=== PATIENT | female | born 1965 | race Caucasian/White ===

== ENCOUNTER 2017-12-26 10:32 | Outpatient (CLI) | payer OTHER ==
--- NOTE | 2017-12-26 14:31 | MMO ---
BILATERAL SCREENING MAMMOGRAM: HISTORY: Screening. COMPARISON: Mammogram from 2014. FINDINGS: Bilateral CC and MLO mammograms were performed with computer-aided detection. Scattered fibroglandul ar densities. No suspicious mass, architectural distortion, or microcalcifications. Interpretation of this mammogram was performed with the assistance of computer-aided detection. IMPRESSION: BI-RADS category 2, benign findings. Annual screening mammography is recommended. BIRADS 2: Benign Finding(s) Routine annual screening mammography (for women over age 40) POS: SRIDHAR
== END 2017-12-26 10:33 | disposition home or self-care (01) ==
LOC: SCSMAMMO 10:32
PROVIDERS: ATTEND Family Medicine
DX: Z12.31 Encounter for screening mammogram for malignant neoplasm of breast (principal)
CPT/HCPCS: 77067

== ENCOUNTER 2018-03-15 14:28 | Emergency (ER) | payer OTHER ==
[2018-03-15] MEDS ORDERED: Ondansetron HCl/PF 4 MG/2 ML Vial ONE (14:51)
[2018-03-15 15:00] LABS: #Basophils 0.1 thou/uL (0.0-0.2); #Lymphocytes 1.1 thou/uL (1.20-3.40); #Monocytes 0.9 thou/uL (0.11-0.59); #Neutrophils 7.7 thou/uL (1.40-6.50); %Basophils 0.6 % (0.0-1.0); %Eosinophils 0.2 % (0.0-10.0); %Monocytes 8.9 % (0.0-10.0); %Neutrophils 79.3 % (42.0-75.0); Hemoglobin 14.1 g/dL (12.0-16.0); Mean Corpuscular HGB CONC 32.5 g/dL (32.0-36.0); Mean Corpuscular Hemoglobin 33.4 pg (27.0-31.0); Mean Platelet Volume 5.9 fL (7.4-10.4); Platelet Count 255 thou/uL (130-400); RBC Distribution Width 12.3 % (11.5-14.5); Red Blood Cell (RBC) Count 4.21 mill/uL (4.20-5.40); White Blood Cell (WBC) Count 9.8 thou/uL (4.8-10.8)
[2018-03-15 15:22] LABS: ALT (SGPT) 52 U/L (8-55); AST (SGOT) 61 U/L (5-34); Albumin 4.2 g/dL (3.5-5.0); Alkaline Phosphatase 82 U/L (40-150); Anion Gap 24 mmol/L (10-20); BUN (Urea Nitrogen) 4 mg/dL (7.0-18.7); Bilirubin, Total 0.6 mg/dL (0.2-1.2); CK (CPK) 44 U/L (29-168); Calc. Creatinine Clearance 0 mL/min (70-130); Calcium 8.7 mg/dL (7.8-10.44); Carbon Dioxide 20 mmol/L (22-29); Chloride 99 mmol/L (98-107); Estimated GFR-MDRD Greater than 90; Globulin 3.6 g/dL (2.4-3.5); Glucose 128 mg/dL (70-105); Lipase 24 U/L (8-78); Protein, Total 7.8 g/dL (6.0-8.3); Sodium 140 mmol/L (136-145)
[2018-03-15 15:24] LABS: CKMB 0.9 ng/mL (0-6.6); Troponin I 0.018 ng/mL (< 0.028)
--- NOTE | 2018-03-15 15:29 | RAD ---
FRONTAL VIEW CHEST: Date: 03/15/18 COMPARISON: 06/26/16. INDICATION: Tachycardia. FINDINGS: There is no consolidation, effusion, or pneumothorax. Cardiac silhouette is normal in size. IMPRESSION: No focal consolidation. POS: NATALYH
[2018-03-15] MEDS ORDERED: Ketorolac Tromethamine 30 MG/ML VIAL ONE (15:52)
[2018-03-15] MEDS ORDERED: Lorazepam 2 MG/ML VIAL ONE (15:52)
[2018-03-15 16:01] LABS: Bilirubin Negative (Negative); Blood, Urine Negative (Negative); Clarity CLEAR (Clear); Glucose, Urine (Dipstick) Negative (Negative); Leukocyte Small (Negative); Nitrite Negative (Negative); Protein, Urine (Dipstick) Negative (Neg-Trace); Specific Gravity, Urine 1.005 (1.002-1.036); Urobilinogen 0.2 mg/dL (0.2-1.0); pH, Urine 7.5 (5.0-9.0)
[2018-03-15 16:03] LABS: Bacteria/HPF None Seen HPF (None Seen); Hyaline Casts/LPF 0-3 HYALINE CAST LPF (0-3 Hyaline); Pathc Cast-AUWi Flag 0.58 (0-2.49); RBC/HPF 0-3 HPF (0-3); Squamous Epithelial None Seen HPF (0-3); WBC/HPF 0-3 HPF (0-3)
[2018-03-15 17:38] LABS: Actual Bicarbonate (HCO3v) 21 mEq/L (22-28); Analyzer IN Cardio ER; Base Excess -2.5 mEq/L (-2.0 to +3.0); Calcium, Ionized 0.97 mmol/L (1.16-1.32); Chloride (ABG LAB) 104 mmol/L (98-106); Hemoglobin (Hb) 15.1 g/dL (11.7-16.0); Potassium - ABG Lab 3.48 mmol/L (3.70-5.30); Sodium 141.4 mmol/L (133-146); pH (venous) 7.43 (7.32-7.43)
[2018-03-15] MEDS ORDERED: Potassium Chloride 20 MEQ TAB ONE (17:42)
[2018-03-15] MEDS ORDERED: Calcium Gluc 4.6 MEQ/10 ML (100 MG/ML) ONE (17:55)
[2018-03-15] MEDS ORDERED: Calcium Gluconate 4.6 MEQ in Sodium Chloride 0.9% 100 ML IVPB SCH (18:15)
== END 2018-03-15 19:52 | disposition home or self-care (01) ==
LOC: ERS 14:28
DX: F41.9 Anxiety disorder, unspecified (principal); M62.838 Other muscle spasm
CPT/HCPCS: 36415; 71045; 80053; 81003; 81015; 82550; 82553; 82805; 83690; 83880; 84443; 84484; 85025; 93005; J1885; J2060; J2405; J7050

== ENCOUNTER 2018-03-16 10:42 | Inpatient (IN) | payer OTHER ==
[2018-03-16 11:26] LABS: Base Excess-Venous 0.3 mmol/L (0 (+/- 2.5)); Bicarbonate (HCO3v) 19.8 mmol/L (1.0-85.0); Calcium, Ionized 1.05 mmol/L (1.12-1.32); Hemoglobin - Calc 15.5 g/dL (12.0-18.0); O2 Tension (PvO2) 46.7 mmHg (35.0-45.0); Potassium 2.5 mmol/L (3.4-4.7); T. Carbon Dioxide 20.4 mmol/L (1.0-85.0); pH (Venous) 7.582 (7.35-7.45); vO2 Saturation-calc 89.7 % (94-98)
[2018-03-16 11:47] LABS: #Lymphocytes 0.9 thou/uL (1.20-3.40); #Monocytes 0.8 thou/uL (0.11-0.59); #Neutrophils 4.7 thou/uL (1.40-6.50); %Basophils 0.3 % (0.0-1.0); %Eosinophils 0.4 % (0.0-10.0); %Lymphocytes 13.9 % (21.0-51.0); %Monocytes 11.9 % (0.0-10.0); %Neutrophils 73.5 % (42.0-75.0); Hemoglobin 14.2 g/dL (12.0-16.0); Mean Corpuscular HGB CONC 33.2 g/dL (32.0-36.0); Mean Corpuscular Hemoglobin 33.8 pg (27.0-31.0); Mean Platelet Volume 6.3 fL (7.4-10.4); Platelet Count 245 thou/uL (130-400); Red Blood Cell (RBC) Count 4.21 mill/uL (4.20-5.40); White Blood Cell (WBC) Count 6.5 thou/uL (4.8-10.8)
[2018-03-16 12:08] LABS: ALT (SGPT) 46 U/L (8-55); AST (SGOT) 57 U/L (5-34); Albumin 4.3 g/dL (3.5-5.0); Alkaline Phosphatase 81 U/L (40-150); Anion Gap 24 mmol/L (10-20); BUN (Urea Nitrogen) 7 mg/dL (7.0-18.7); Bilirubin, Total 1.1 mg/dL (0.2-1.2); CK (CPK) 50 U/L (29-168); Calc. Creatinine Clearance 0 mL/min (70-130); Calcium 9.9 mg/dL (7.8-10.44); Carbon Dioxide 18 mmol/L (22-29); Chloride 98 mmol/L (98-107); Estimated GFR-MDRD Greater than 90; Globulin 3.5 g/dL (2.4-3.5); Glucose 81 mg/dL (70-105); Potassium 2.6 mmol/L (3.5-5.1); Protein, Total 7.8 g/dL (6.0-8.3); Sodium 137 mmol/L (136-145)
[2018-03-16 12:19] LABS: CKMB 1.4 ng/mL (0-6.6); Troponin I 0.013 ng/mL (< 0.028)
[2018-03-16] MEDS ORDERED: Calcium Gluc 4.6 MEQ/10 ML (100 MG/ML) ONE ×2 (12:40→12:45)
[2018-03-16] MEDS ORDERED: Potassium Chloride 20 MEQ TAB ONE (12:40)
[2018-03-16] MEDS ORDERED: Magnesium 2 GM/50 ML 2 GM in Premix Bag 1 BAG IVPB SCH (13:00)
[2018-03-16] MEDS ORDERED: Lorazepam 2 MG/ML VIAL ONE (14:21)
[2018-03-16] MEDS ORDERED: Ondansetron ODT 4 MG TAB PO PRN (15:42)
[2018-03-16] MEDS ORDERED: Pepto Bismol Chew TAB PO PRN (15:42)
[2018-03-16] MEDS ORDERED: traMADol HCl 50 MG TAB PO PRN (15:42)
[2018-03-16] MEDS ORDERED: Acetaminophen 500 MG TAB PO PRN (15:42)
[2018-03-16] MEDS ORDERED: Calcium Carbonate 500 MG ChewTAB PO PRN (15:42)
[2018-03-16] MEDS ORDERED: Mag-Al 1200 mg/1200 mg/30 ML UDCUP PO PRN (15:42)
[2018-03-16] MEDS ORDERED: traZODone HCl 50 MG TAB PO PRN (15:42)
[2018-03-16] MEDS ORDERED: Ondansetron HCl/PF 4 MG/2 ML Vial IVP PRN (15:42)
[2018-03-16 15:49] VITALS: BMI 21.5
[2018-03-16] MEDS: Potassium Chloride 20 MEQ in Premix Bag 1 BAG IVPB SCH ×2 (16:00→17:34)
[2018-03-16 17:09] LABS: Troponin I 0.013 ng/mL (< 0.028)
[2018-03-16 18:55] LABS: ALT (SGPT) 43 U/L (8-55); AST (SGOT) 55 U/L (5-34); Albumin 4.1 g/dL (3.5-5.0); Alkaline Phosphatase 79 U/L (40-150); Anion Gap 14 mmol/L (10-20); BUN (Urea Nitrogen) 6 mg/dL (7.0-18.7); Bilirubin, Total 0.8 mg/dL (0.2-1.2); Calc. Creatinine Clearance 79 mL/min (70-130); Calcium 9.5 mg/dL (7.8-10.44); Carbon Dioxide 23 mmol/L (22-29); Chloride 100 mmol/L (98-107); Estimated GFR-MDRD Greater than 90; Globulin 3.5 g/dL (2.4-3.5); Glucose 97 mg/dL (70-105); Magnesium 2.2 mg/dL (1.6-2.6); Potassium 3.8 mmol/L (3.5-5.1); Protein, Total 7.6 g/dL (6.0-8.3); Sodium 133 mmol/L (136-145)
[2018-03-16 19:14] LABS: Free T4 (Free Thyroxine) 1.06 ng/dL (0.70-1.48)
[2018-03-16 19:27] LABS: Folate (Folic Acid) 12.5 ng/mL (7.0-31.4)
[2018-03-16] MEDS ORDERED: Lorazepam 2 MG/ML VIAL SLOW IVP PRN (19:35)
[2018-03-16] MEDS ORDERED: Morphine 10 MG/ML VIAL SLOW IVP PRN (19:36)
[2018-03-16] MEDS: Topiramate 100 MG TAB PO SCH (21:09)
[2018-03-16] MEDS: D5 1/2 NS w/40 mEq KCL 1,000 ML IV SCH (22:33)
--- NOTE | 2018-03-17 00:03 | HP ---
DATE OF SERVICE: 03/16/2018 PRIMARY CARE PHYSICIAN: Dr. Lev Davila. CHIEF COMPLAINT: Intractable nausea and vomiting. HISTORY OF PRESENT ILLNESS: The patient was seen in outpatient clinic with Dr. Davila on the of this month and noted to have chronic diarrhea following colonoscopy earlier this year. Unable to review records on an outpatient. Colonoscopy was performed on 12/31/2017, screening colonoscopy, diverticulosis and sigmoid colon were found, internal hemorrhoid was present, otherwise normal. Repeat colonoscopy in [address] Luis Alberto Hardy. When speaking with the patient and patient's , they state that this has been going on for many more months that she has had a near lifelong history of queasy stomach; but over the last 6 months, she has thrown up in the morning, every morning, without fail, small amount, able to keep down so much amount of food and liquid throughout the day, has been having diarrhea over that 6-month period as well. She has only had uptake following bowel prep in December and has had intractable nausea and vomiting over the last 48-72 hours for which they presented to [facility] yesterday for, found to have potassium significantly low, was properly replaced at 3.4 prior to discharge home with intended close clinic followup. Given the fact Dr. Lev Davila has already done stool studies for chronic diarrhea with toxin assay negative, culture normal and pending ova and parasite. Apparently, the patient's spouse live on well [place], looking a possibility for parasitic infection given indolent history, but after speaking with the patient and patient's has much more indolent case than that and they state they normally do not use well water for drinking. The patient states she has paresthesias of upper and lower extremities bilaterally. She has had a muscle cramping of upper and lower extremities over the last 48 hours with this decrease in potassium. The patient is overtly anxious; however, denies anxiety, has been treated in the past with multiple anxiety medications including citalopram, Cymbalta, amitriptyline, multiple benzodiazepines. The patient currently not compliant with citalopram. She does not feel if that is much for her, only takes it when she feels she is getting worse. REVIEW OF SYSTEMS: No fevers, no chills. Positive fatigue. No runny nose, no congestion, no cough, no shortness of breath. No tobacco abuse. No chest pain or palpitation. Positive nausea, positive vomiting. Positive abdominal pain. Positive diarrhea. No blood in stool or emesis. Positive muscle cramp. Positive numbness and tingling to upper and lower extremities. No syncopal episode, no headache. Positive anxiety, but patient formally denies, denies depression. Denies illicit drug use. Reports positive alcohol use. Review of past medical, social, surgical history includes allergies to SHELLFISH. 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 HOME MEDICATIONS: Include citalopram 20 mg, Flagyl 500 mg, Imitrex 25 mg for migraine history, ipratropium bromide nasal spray p.r.n., Zofran 4 mg tablet t.i.d. p.r.n., Zanaflex, tizanidine 4 mg b.i.d. p.r.n. Cystoscope in December of this year, diverticulosis and internal hemorrhoid as above. The patient with a prior right knee cartilage arthroscopy, hysterectomy in 2011. The patient is nonsmoker. Drinks alcohol including wine. Lives with spouse. Review of vital signs showed temperature 98.8, pulse of 95, respiratory rate of 14, oxygen saturation 100% on room air, blood pressure 146/80. LABORATORY AND DIAGNOSTIC WORK: Reviewed. White blood cell count 6.5, hemoglobin 14.2, MCV 102, platelet count of 245,000, neutrophils of 73.5. Sodium of 133, potassium improved from 2.5-3.8, chloride of 100, CO2 of 23, creatinine of 0.67, glucose of 97, calcium of 9.5 following of replacement. Ionized calcium was 1.05, slightly low. Magnesium of 2.2, status post magnesium sulfate infusion, AST of 55, ALT of 43. Troponins x2 0.01, CK of 6, albumin of 4.1. Folic acid of 12.5, B12 of 241. Free T3 of 3.38, free T4 of 1.06. TSH performed yesterday's admission to the emergency room, elevated to 5.04. Lipase on yesterday's hospital visit of 24. Urinalysis from yesterday, blood negative, protein. Specific gravity 1.005. PHYSICAL EXAMINATION: GENERAL: The patient is alert and oriented, is agitated. HEENT: Normocephalic, atraumatic. Extraocular movements are intact. Pupils are dilated grossly following benzodiazepine and narcotic administration in the emergency room. Oral mucosa is moist. Patient is concerned about possible canker sore forming and bottom right buccal mucosa. NECK: Supple. HEART: Regular rate and rhythm at time of exam. No murmurs auscultated. LUNGS: Clear to auscultation bilaterally. No rubs or wheezes. ABDOMEN: Bowel sounds slightly hyperactive, generalized tenderness without rebound or guarding, somewhat bloated. Negative bed shakes and leg lifts. No CVA tenderness, no suprapubic tenderness. EXTREMITIES: Lower extremities without cyanosis or edema. The patient is with ecchymoses in bilateral upper and lower extremities. Patient points to multiple areas that are not from phlebotomy on the IV sites over the last [address] Davila as work this up with INR Von Will[place]rans factor negative and normal on an outpatient basis in the last month. NEUROLOGIC: The patient is alert and oriented x3, no focal deficits. Speech is normal. The patient is agitated and anxious; however, denies anxiety. Reports that she has muscle cramping with palpation to all muscle groups of upper and lower extremities as well as numbness and tingling to upper and lower extremities; however, sensation is grossly intact to gross and fine discrimination only. ASSESSMENT AND PLAN: Acute on chronic nausea, vomiting, and diarrhea. Currently, intractable N/V/D, elevated TSH, anxiety, paresthesias. Given the patient's indolent history keeps growing every time I asked when her nausea, vomiting, diarrhea started. We will see gastroenterology recommendations given relatively normal scope other than diverticulosis and hemorrhoid this year. No signs or symptoms of inflammatory bowel disease or celiac sprue. The patient's pattern fits much more of cyclic indices with combined diarrhea. Likely exacerbated by her poorly controlled anxiety on outpatient basis, ova and parasites are still pending on stool studies from outpatient on 03/07, we would like to follow up on those, however. Given paresthesias and muscle cramps that the patient is having that seemed to be beyond what she should be having for normalized potassium. We will check major viral panel and autoimmune panel. The patient's thyroid may be partially responsible for her acute instability, checking a thyroid peroxidase and thyroglobulin antibodies, but the patient's free T4 and free T3 are currently stable. We will go ahead and initiate Topamax as this is not a medication. The patient appeared to have on outpatient basis at least on the last 4 years. The patient failed treatment on amitriptyline, SSRI such as Celexa, Cymbalta, SNRI, and benzodiazepines in the past. Continuing IV fluids overnight with D5 one half NS with 40 mEq of potassium, p.r.n. Ativan and morphine for patient's pain control. Tramadol and trazodone for back up insomnia and pain control. Given the irritability of nerves may look at Solu-Medrol 125 mg x1 following immune panel drawn tomorrow morning to see if the patient's pain profile improves along with continued stability of electrolytes. We will check CMP in the morning again to trend; however, the patient's most recent potassium is normalized with normal magnesium , given IV fluids overnight do not expect the patient to dip down in the morning. The patient's magnesium level was unknown from first emergency department visit, it was likely a low given the fact that she bounced back so quickly with low potassium, however, should be maintained now that is about 2. MTDD
[2018-03-17 05:45] LABS: ALT (SGPT) 43 U/L (8-55); AST (SGOT) 53 U/L (5-34); Alkaline Phosphatase 74 U/L (40-150); Anion Gap 10 mmol/L (10-20); BUN (Urea Nitrogen) 5 mg/dL (7.0-18.7); Calc. Creatinine Clearance 81 mL/min (70-130); Carbon Dioxide 25 mmol/L (22-29); Chloride 103 mmol/L (98-107); Estimated GFR-MDRD Greater than 90; Globulin 3.5 g/dL (2.4-3.5); Glucose 118 mg/dL (70-105); Potassium 4.2 mmol/L (3.5-5.1); Protein, Total 7.5 g/dL (6.0-8.3); Sodium 134 mmol/L (136-145)
[2018-03-17 05:47] LABS: CRP (Inflammatory) 1.28 mg/dL (= or < 0.5)
[2018-03-17] MEDS: D5 1/2 NS w/40 mEq KCL 1,000 ML IV SCH (06:16)
[2018-03-17 06:55] LABS: HBCM Index 0.07 S/CO (0-0.79); HBSAg Index 0.22 S/CO (0-0.99); Hep A IgM AB Non-Reactive (NonReactive); Hep A IgM S/CO 0.12 S/CO (0-0.79); Hep B Surf Ag Non-Reactive S/CO (NonReactive); Hep C IgG Ab Non-Reactive (NonReactive); Hepatitis B Core IGM Abs Non-Reactive (NonReactive)
[2018-03-17] MEDS ORDERED: Loperamide HCl 2 MG CAP PO PRN (07:52)
--- NOTE | 2018-03-17 08:13 | PRG ---
DATE OF SERVICE: 03/17/2018 The patient is feeling some better. She is tolerating a chicken biscuit this morning. Denies nausea and vomiting, continues to have loose to watery stools, but last bowel movement was 2-3 days ago. S he states that she has not had a good appetite as of lately. Denies fevers or chills, nausea and vom iting. Denies abdominal pain. OBJECTIVE: VITAL SIGNS: Temperature 98.0, pulse of 97-102, respirations 15, blood pressure 140/87, pulse ox is 93-98% on room air. GENERAL: She is awake, alert, in no acute distress. Speech is clear. Mucosa is moist. NECK: Supple. HEART: Regular rate and rhythm. LUNGS: Clear. ABDOMEN: Positive bowel sounds throughout, soft, nontender, nondistended. No hepatosplenomegaly. EXTREMITIES: No edema, no calf tenderness. Full range of motion. LABORATORY DATA: Sodium 134, potassium 4.2, chloride 103, CO2 of 25, BUN and creatinine 5 and 0.66 w ith a GFR over 90. Serum glucose of 118, calcium of 9.0, magnesium of 2.2, AST and ALT are stable, T 3 and T4 were normal. White blood cell count 6.5, hemoglobin and hematocrit 14.2 and 42.8 with macro cytic indices, platelets of 254. Sed rate of 12. ASSESSMENT AND PLAN: This is a 52-year-old female patient with a long history of anxiety disorder wh o has not been compliant with her medications. She has had symptoms of chronic diarrhea. She has a history of irritable bowel, has had acute episode of intractable nausea and vomiting, and diarrhea ov er the past few days and admitted for symptomatic hypokalemia. 1. Hypokalemia, has resolved with replacement. Her magnesium levels has been stable. We will disco ntinue IV fluids and transition her to an oral diet and monitor closely. 2. Chronic diarrhea. Consult GI for further evaluation as she has not followed up as an outpatient. 3. Elevated TSH with normal T3 and T4, possibly euthyroid, sick, will continue to monitor. Await th yroid antibodies. 4. Chronic anxiety. I will continue trazodone at bedtime, limit benzodiazepines. DISPOSITION: Hopefully home later today or in the morning if she is tolerating a diet after GI evalu ation.
[2018-03-17] MEDS: Topiramate 100 MG TAB PO SCH (08:58)
[2018-03-17] MEDS ORDERED: methylPREDNISolone Sod Succ/PF 125 MG/2 ML VIAL IVP SCH (09:00)
[2018-03-17] MEDS ORDERED: methylPREDNISolone Sod Succ/PF 125 MG/2 ML VIAL IVP ONE (09:00)
[2018-03-17] MEDS ORDERED: Citalopram 20 MG TAB PO SCH (09:00)
[2018-03-17] MEDS ORDERED: Cyanocobalamin (Vitamin B-12) 1,000 MCG TAB PO SCH (09:00)
[2018-03-17 11:36] VITALS: BP 128/77; TEMP 98.7
[2018-03-17 14:50] LABS: ANA Symphony (Qualitative) Negative (Negative); ANA Symphony (Quantitative) Less than 0.07 Ratio (<0.7 Negative); dsDNA IgG Antibody Less than 0.5 IU/mL (<10 Negative)
[2018-03-17 15:09] LABS: EliA Thy New Method **** NEW METHOD ****; Thyroglobulin Antibody Less than 12.0 IU/mL (<40 Normal); Thyroid Peroxidase IgG Ab Less than 4.0 IU/mL (<25 Normal)
[2018-03-19 11:22] LABS: Lyme IgG/IgM AB <0.91 ISR (0.00-0.90)
[2018-03-19 21:09] LABS: HSV-2 IgG Type Specific Less than 0.91 index (0.00-0.90)
== END 2018-03-17 15:09 | disposition home or self-care (01) | DRG 641 ==
LOC: ERS 10:42 → 2NO 15:04
PROVIDERS: ADMIT Family Medicine; ATTEND Family Medicine
DX: E87.6 Hypokalemia (principal); R11.2 Nausea with vomiting, unspecified; F41.9 Anxiety disorder, unspecified; R19.7 Diarrhea, unspecified
CPT/HCPCS: 36415; 71045; 80053; 80074; 81003; 81015; 82330; 82550; 82553; 82607; 82746; 82803; 82805; 83690; 83735; 83880; 84439; 84443; 84481; 84484; 85025; 85652; 86038; 86140; 86225; 86376; 86618; 86644; 86694; 86695; 86696; 86790; 86800; 87798; 93005; 94760; 96361; 96365; 96367; 96374; 96375; J1885; J2060; J2270; J2405; J2930; J3480; J7050; Q0162